=== PATIENT | female | born 1945 | race Caucasian/White ===

== ENCOUNTER 2016-12-06 14:32 | Observation (INO) | payer BC, MEDICARE ==
[2016-12-06] VITALS (13 sets, daily range): BP systolic 90–161; BP diastolic 46–92; PULSE 60–80; RESP 16–20; TEMP 96.6–97.5; O2SAT 95–99
[~2016-12-06] VITALS: Ht 157.5 cm; Wt 91.0 kg
[2016-12-06] MEDS ORDERED: COQ10 (14:59)
[2016-12-06] MEDS ORDERED: ASPI81TA11 PO (14:59)
[2016-12-06] MEDS ORDERED: SIMV10TA PO (14:59)
[2016-12-06] MEDS ORDERED: PROT40TA PO (14:59)
[2016-12-06] MEDS: NITROGLYCERIN 0.4 MG SL 25 TABS/BTL SL SCH ×3 (15:14→15:25)
[2016-12-06] MEDS ORDERED: SODIUM CHLORIDE 0.9% FLUSH 5 ML FLUSH IVF PRN ×2 (15:15→17:00)
[2016-12-06] MEDS ORDERED: MORPHINE SULFATE 4 MG/ML INJ IV PUSH ONE ×2 (15:15→16:15)
[2016-12-06] MEDS ORDERED: ASPIRIN 81 MG CHEW TAB PO ONE (15:15)
[2016-12-06 15:24] LABS: AUTOMATED NEUTROPHIL # 3.7 TH/MM3 (1.8-7.7); BASOPHIL # 0.2 TH/MM3 (0-0.2); BASOPHIL % 2.5 % (0.0-2.0); EOSINOPHIL # 0.1 TH/MM3 (0-0.4); EOSINOPHIL % 1.5 % (0.0-4.0); HEMATOCRIT 36.8 % (35.0-46.0); HEMO FLAGS DIFF FINAL; LYMPHOCYTE # 3.8 TH/MM3 (1.0-4.8); MEAN CELL VOLUME 88.4 FL (80.0-100.0); MEAN CORPUSCULAR HEMOGLOBIN 29.8 PG (27.0-34.0); MEAN CORPUSCULAR HGB CONC 33.7 % (32.0-36.0); MONO % 7.6 % (0.0-8.0); NEUT % 44.4 % (16.0-70.0); PLATELET COUNT 247 TH/MM3 (150-450); RED BLOOD COUNT 4.17 MIL/MM3 (4.00-5.30); WHITE BLOOD COUNT 8.4 TH/MM3 (4.0-11.0)
--- NOTE | 2016-12-06 15:32 | RADHPO ---
EXAM DATE/TIME: 12/06/2016 15:25 [facility] COMPARISON: No previous studies available for comparison. INDICATIONS : Chest pain MEDICAL HISTORY : None. SURGICAL HISTORY : None. ENCOUNTER: Initial ACUITY: 1 day PAIN SCORE: 6/10 LOCATION: Bilateral chest FINDINGS: The cardiac silhouette is enlarged in transverse diameter. The lungs are free of acute parenchymal op acity. No effusions are identified. Osseous structures are intact. CONCLUSION: Cardiomegaly. No acute cardiopulmonary disease. Kai Cooley MD on December 06, 2016 at 15:30 Board Certified Radiologist. This report was verified electronically.
[2016-12-06 15:34] LABS: CHLORIDE 106 MEQ/L (98-107); POTASSIUM 3.7 MEQ/L (3.5-5.1); SODIUM (NA) 143 MEQ/L (136-145)
[2016-12-06 15:38] LABS: ANION GAP 11 MEQ/L (5-15); BICARBONATE 25.8 MEQ/L (21.0-32.0); BLOOD UREA NITROGEN 21 MG/DL (7-18); MAGNESIUM 2.1 MG/DL (1.5-2.5)
[2016-12-06 15:39] LABS: APTT (PATIENT) 22.8 SEC (24.3-30.1); PROTHROMBIN TIME - PATIENT 11.2 SEC (9.8-11.6)
[2016-12-06 15:41] LABS: ALT (GPT) 17 U/L (10-53); AST (GOT) 23 U/L (15-37); GLOMERULAR FILTRATION RATE 41 ML/MIN (>89)
[2016-12-06 15:42] LABS: TOTAL BILIRUBIN ADULT 0.4 MG/DL (0.2-1.0)
[2016-12-06 15:44] LABS: ALKALINE PHOSPHATASE 135 U/L (45-117); CREATINE KINASE 68 U/L (26-192)
[2016-12-06] MEDS ORDERED: NITROGLYCERIN 0.4 MG SL 25 TABS/BTL SL PRN (17:00)
[2016-12-06] MEDS ORDERED: ACETAMINOPHEN 500 MG CPLT PO PRN (17:00)
[2016-12-06] MEDS ORDERED: ONDANSETRON HCL 4 MG/2 ML VIAL IV PRN (17:00)
[2016-12-06] MEDS ORDERED: [UNRECOGNIZED DRUG - CODE] TOPICAL (17:06)
[2016-12-06] MEDS ORDERED: ESTR42.5V VAGINAL (17:06)
--- NOTE | 2016-12-06 17:12 | PD ---
HPI Chief Complaint: Abdominal Pain Time Seen by Provider: 14:50 Travel History International Travel<30 days: No Contact w/Intl Traveler<30days: No Traveled to known affect area: No History of Present Illness HPI Patient is a 70 year old female who comes in complaining of chest pain with SOB. She says she was at lunch when she started to feel pain in the middle of her chest. She says she then developed severe pain in her left shoulder that radiated down into her chest. She says this was accompanied by SOB, nausea, diaphoresis. She says she thought her symptoms may be indigestion, but she has never had symptoms like this before. She denies fever or chills. She denies cough or cold symptoms. PFSH Past Medical History Hx Anticoagulant Therapy: Yes (81 MG ASA) High Cholesterol: Yes Diminished Hearing: No Hiatal Hernia: Yes Tetanus Vaccination: Unknown ?: Not Tubal Ligation: Yes Past Surgical History Cholecystectomy: Yes Eye Surgery: Yes (CATARACTS) Tonsillectomy: Yes Other Surgery: Yes (SKIN CA REMOVED FROM NOSE) Social History Alcohol Use: No Tobacco Use: No Substance Use: No Allergies-Medications (Allergen,Severity, Reaction): Coded Allergies: Sulfa (Verified Allergy, Unknown, Anaphylaxis, 12/06/16) Reported Meds & Prescriptions Reported Meds & Active Scripts Active Reported [Coq10] Aspirin EC (Aspirin) 81 Mg Tabdr 81 Mg PO DAILY Simvastatin 10 Mg Tab 10 Mg PO DAILY Protonix (Pantoprazole Sodium) 40 Mg Tab 40 Mg PO DAILY Review of Systems Except as stated in HPI: all other systems reviewed are Neg General / Constitutional: No: Fever, Chills Eyes: No: Blurred Vision HENT: No: Headaches Cardiovascular: Positive: Chest Pain or Discomfort, No: Syncope, Edema Respiratory: Positive: Shortness of Breath Gastrointestinal: Positive: Nausea, Abdominal Pain, No: Vomiting Genitourinary: No: Dysuria Musculoskeletal: No: Myalgias Skin: No Rash, No Change in Pigmentation Neurologic: No: Weakness, Dizziness Psychiatric: Positive: Anxiety Physical Exam Narrative GENERAL: Awake and alert, in mild distress due to pain. SKIN: Warm and dry. HEAD: Atraumatic. Normocephalic. EYES: Pupils equal and round. No scleral icterus. ENT: Mucous membranes pink and moist. NECK: Trachea midline. No JVD. CARDIOVASCULAR: Regular rate and rhythm. No murmur appreciated. RESPIRATORY: No accessory muscle use. Clear to auscultation. Breath sounds equal bilaterally. GASTROINTESTINAL: Abdomen soft, non-tender, nondistended. . MUSCULOSKELETAL: No obvious deformities. No clubbing. No cyanosis. 1+ pitting edema bilateral lower extremities. NEUROLOGICAL: Awake and alert. No obvious cranial nerve deficits. Motor grossly within normal limits. Normal speech. PSYCHIATRIC: Appropriate mood and affect; insight and judgment normal. Data Data Last Documented VS Vital Signs Date Time Temp Pulse Resp B/P Pulse Ox O2 Delivery O2 Flow Rate FiO2 12/06/16 17:04 123/48 12/06/16 17:00 75 18 96 Room Air 12/06/16 16:26 2 12/06/16 14:37 97.5 Orders Ckmb (Isoenzyme) Profile (12/06/16 15:02) Complete Blood Count With Diff (12/06/16 15:02) Comprehensive Metabolic Panel (12/06/16 15:02) Magnesium (Mg) (12/06/16 15:02) Prothrombin Time / Inr (Pt) (12/06/16 15:02) Act Partial Throm Time (Ptt) (12/06/16 15:02) Troponin I (12/06/16 15:02) Lipase (12/06/16 15:02) Chest, Single Ap (12/06/16 15:02) Ecg Monitoring (12/06/16 15:02) Bilateral Bp Monitoring (12/06/16 15:02) Iv Access Insert/Monitor (12/06/16 15:02) Oximetry (12/06/16 15:02) Oxygen Administration (12/06/16 15:02) Aspirin Chew (Aspirin Chew) (12/06/16 15:15) Morphine Inj (Morphine Inj) (12/06/16 15:15) Sodium Chloride 0.9% Flush (Ns Flush) (12/06/16 15:15) Nitroglycerin Sl (Nitrostat Sl) (12/06/16 15:15) Electrocardiogram (12/06/16 14:43) Morphine Inj (Morphine Inj) (12/06/16 16:15) Admit Order (Ed Use Only) (12/06/16 ) Place In Observation (12/06/16 16:47) Activity Bed Rest With Brp (12/06/16 16:47) Vital Signs (Adult) Q4H (12/06/16 16:47) Cardiac Rhythm .As Directed (12/06/16 16:47) ^ Notify Dr: Other .PRN (12/06/16 16:47) ^ Notify Dr. Parameters (12/06/16 16:47) Resp Oxygen Nasal Cannula (12/06/16 ) Diet Heart Healthy (12/06/16 Dinner) ^ Obtain (12/06/16 16:47) Sodium Chloride 0.9% Flush (Ns Flush) (12/06/16 17:00) Sodium Chloride 0.9% Flush (Ns Flush) (12/06/16 21:00) Acetaminophen (Tylenol) (12/06/16 17:00) Ondansetron Inj (Zofran Inj) (12/06/16 17:00) Pantoprazole (Protonix) (12/07/16 09:00) Nitroglycerin Sl (Nitrostat Sl) (12/06/16 17:00) Electrocardiogram (12/06/16 18:00) Electrocardiogram (12/06/16 21:00) Troponin I (12/06/16 18:00) Troponin I (12/06/16 21:00) Ckmb (Isoenzyme) Profile (12/06/16 18:00) Ckmb (Isoenzyme) Profile (12/06/16 21:00) Labs Laboratory Tests Test 12/06/16 15:00 White Blood Count 8.4 TH/MM3 Red Blood Count 4.17 MIL/MM3 Hemoglobin 12.4 GM/DL Hematocrit 36.8 % Mean Corpuscular Volume 88.4 FL Mean Corpuscular Hemoglobin 29.8 PG Mean Corpuscular Hemoglobin 33.7 % Concent Red Cell Distribution Width 14.0 % Platelet Count 247 TH/MM3 Mean Platelet Volume 8.9 FL Neutrophils (%) (Auto) 44.4 % Lymphocytes (%) (Auto) 44.0 % Monocytes (%) (Auto) 7.6 % Eosinophils (%) (Auto) 1.5 % Basophils (%) (Auto) 2.5 % Neutrophils # (Auto) 3.7 TH/MM3 Lymphocytes # (Auto) 3.8 TH/MM3 Monocytes # (Auto) 0.6 TH/MM3 Eosinophils # (Auto) 0.1 TH/MM3 Basophils # (Auto) 0.2 TH/MM3 CBC Comment DIFF FINAL Differential Comment Prothrombin Time 11.2 SEC Prothromb Time International 1.0 RATIO Ratio Activated Partial 22.8 SEC Thromboplast Time Sodium Level 143 MEQ/L Potassium Level 3.7 MEQ/L Chloride Level 106 MEQ/L Carbon Dioxide Level 25.8 MEQ/L Anion Gap 11 MEQ/L Blood Urea Nitrogen 21 MG/DL Creatinine 1.30 MG/DL Estimat Glomerular Filtration 41 ML/MIN Rate Random Glucose 109 MG/DL Calcium Level 8.8 MG/DL Magnesium Level 2.1 MG/DL Total Bilirubin 0.4 MG/DL Aspartate Amino Transf 23 U/L (AST/SGOT) Alanine Aminotransferase 17 U/L (ALT/SGPT) Alkaline Phosphatase 135 U/L Total Creatine Kinase 68 U/L Troponin I LESS THAN 0.02 NG/ML Total Protein 7.4 GM/DL Albumin 3.6 GM/DL Lipase 92 U/L [facility] Medical Decision Making Medical Screen Exam Complete: Yes Emergency Medical Condition: Yes Interpretation(s) ECG shows normal sinus rhythm at 69, no ST elevation or depression, normal intervals. Differential Diagnosis ACS vs NSTEMI vs STEMI vs pancreatitis vs cholecystitis Narrative Course Patient is a 70 year old female who comes in complaining of chest pain. Exam shows patient is uncomfortable secondary to pain. IV established, patient connected to the monitor technician. Labs sent show no acute abnormalities. ECG shows no signs of ischemia. Patient given nitro and morphine with improvement of her pain. Given Aspirin. CXR shows cardiomegaly, no pulmonary edema. Patient placed in chest pain observation for further management. Diagnosis Primary Impression: Chest pain Qualified Code: R07.9 - Chest pain, unspecified type Admitting Information Admitting Physician Requests: Observation Michelle Rod MD Dec 06, 2016 17:11
[2016-12-06] MEDS ORDERED: ACETAMINOPHEN/HYDROcodone 325 MG/7.5 MG TAB PO PRN (17:15)
[2016-12-06] MEDS ORDERED: SODIUM CHLOR 0.9% 1000 ML INJ 1,000 ML IV SCH (18:00)
[2016-12-06 18:23] LABS: CREATINE KINASE 54 U/L (26-192)
--- NOTE | 2016-12-06 18:33 | HHI.HP ---
[facility] Non-Staff Admission Diagnosis Chest Pain Diagnoses: (1) Chest pain Diagnosis: Principal (2) PAUL (acute kidney injury) Diagnosis: Principal Chief Complaint: chest pain Travel History International Travel<30 Days: No Contact w/Intl Traveler <30 Da: No Traveled to Known Affected Are: No History of Present Illness 70 y/o female visiting from [place] with history of hiatal hernia, one kidney, and problems with her legs including an arterial blockage on the right is admitted to chest pain center. Patient states she had just eaten a peanut butter sandwich and banana when she started to experience pain indicating over the epigastric region which "shot up" the middle of the chest into the right chest and left shoulder. She states the pain in the left shoulder was the worst. She felt like her arm was breaking and she rates the pain at that time an 8/10. She also experienced some pleuritic pain on the right side and states she had "a lot" of shortness of breath. She states she felt hot and flushed but denies true diaphoresis. She states she was significantly nauseous, but denies any vomiting or diarrhea. Denies symptoms being related to exertion. Denies any dyspnea on exertion, orthopnea, or PND. The patient has chronic swelling and pain in the legs. States she used to take triamterene as needed for this. She states she started to feel a numbness and swelling type sensation over left jaw and neck after she was administered nitroglycerin. She denies any immediate relief with nitroglycerin. States pain lasted ~1.5 hours until it subsided. She denies any fevers or chills, recent cold or cough symptoms. She states she sees a air conditioning service technician every year for the past 20 years. She states she gets an echo of her heart done once per year and the last one was performed in February 2016. Cardiomegaly was noted on chest x-ray , but the patient denies history of CHF. She last saw her air conditioning service technician in October 2016 in [place]. Last stress test was a few years ago. States she had dizziness for 3 days last week which is now resolved, but states she takes Aleve for the pain in her legs and this can cause dizziness in her if taken at night. Denies personal history of diabetes, hypertension, hyperlipidemia, NC, or CVA. States her blood pressure usually runs low. Review of Systems Constitutional: DENIES: Diaphoretic episodes, Fever, Chills Eyes: DENIES: Blurred vision Ears, nose, mouth, throat: DENIES: Throat pain, Ear Pain Respiratory: COMPLAINS OF: Shortness of breath, DENIES: Cough Cardiovascular: COMPLAINS OF: Chest pain, Lower Extremity Edema (chronic), DENIES: Dyspnea on Exertion, PND, Orthopnea Gastrointestinal: COMPLAINS OF: Abdominal pain, Nausea, DENIES: Constipation, Diarrhea, Vomiting Genitourinary: COMPLAINS OF: Urinary incontinence (chronic), DENIES: Dysuria Musculoskeletal: COMPLAINS OF: Back pain ("a little back pain today") Integumentary: DENIES: Rash Neurologic: COMPLAINS OF: Paresthesias (numbness over L jaw after Nitro), DENIES: Headache, Localized weakness Past Family Social History Past Medical History Hiatal hernia Arterial blockage right leg, nonsurgical Chronic leg pain and swelling Born with one kidney Hospitalized for what sounds like rhabdomyolysis in the past. Past Surgical History Cataract surgery Cholecystectomy Skin cancer removed from the nose, arm, and leg. Reported Medications Estrace Vaginal (Estradiol) 0.01% Cream 1 Appl VAGINAL TWICE WEEKLY Oxytrol For Women Patch (Oxybutynin Chloride) 3.9 mg/24 hr Patch 1 Patch TOPICAL Q4 DAYS [Coq10] Aspirin EC (Aspirin) 81 Mg Tabdr 81 Mg PO DAILY Simvastatin 10 Mg Tab 10 Mg PO DAILY (Takes for blockage in leg; states she does not have high cholesterol) Protonix (Pantoprazole Sodium) 40 Mg Tab 40 Mg PO DAILY Allergies: Coded Allergies: Sulfa (Verified Allergy, Unknown, Anaphylaxis, 12/06/16) Family History Mother: COPD, cirrhosis. Never drank alcohol. Father: of alcoholic cirrhosis. Maternal grandfather: at age 50 from [place]. Maternal grandmother: at age 84 from [place]. Social History Denies alcohol use. Denies history of cigarette smoking or use of tobacco products. Denies history of illicit drug use. Physical Exam Vital Signs Vital Signs Date Time Temp Pulse Resp B/P Pulse Ox O2 Delivery O2 Flow Rate FiO2 12/06/16 17:26 96 21 12/06/16 17:04 123/48 12/06/16 17:00 75 18 90/46 96 Room Air 12/06/16 16:26 76 20 110/55 98 Nasal Cannula 2 120/53 12/06/16 15:28 76 18 112/74 95 Nasal Cannula 2 12/06/16 15:17 73 18 161/71 97 Nasal Cannula 2 12/06/16 15:11 16 99 Nasal Cannula 2 12/06/16 15:00 70 16 149/61 97 Nasal Cannula 2 12/06/16 14:57 99 Nasal Cannula 2 12/06/16 14:37 97.5 80 20 128/76 99 Physical Exam GENERAL: BMI 36.7. This is a very pleasant well-nourished, well-developed patient, in no apparent distress. SKIN: No rashes, ecchymoses or lesions. Cool and dry. HEAD: Atraumatic. Normocephalic. EYES: No scleral icterus. No injection or drainage. ENT: Throat without erythema or exudate. Uvula midline. Airway patent. NECK: Trachea midline. CHEST: Tender over left and right anterior chest as well as sternum. CARDIOVASCULAR: Regular rate and rhythm without murmurs, gallops, or rubs. RESPIRATORY: Clear to auscultation. Breath sounds equal bilaterally. No wheezes , rales, or rhonchi. GASTROINTESTINAL: Normoactive bowel sounds 4 quadrants. Mildly tender over epigastric region. Abdomen soft, nondistended. No guarding. MUSCULOSKELETAL: Mild nonpitting lower extremity edema bilaterally. Calf pain bilaterally, chronic NEUROLOGICAL: Awake and alert. Motor grossly within normal limits. Normal speech. Laboratory Laboratory Tests Test 12/06/16 15:00 White Blood Count 8.4 Red Blood Count 4.17 Hemoglobin 12.4 Hematocrit 36.8 Mean Corpuscular Volume 88.4 Mean Corpuscular Hemoglobin 29.8 Mean Corpuscular Hemoglobin 33.7 Concent Red Cell Distribution Width 14.0 Platelet Count 247 Mean Platelet Volume 8.9 Neutrophils (%) (Auto) 44.4 Lymphocytes (%) (Auto) 44.0 Monocytes (%) (Auto) 7.6 Eosinophils (%) (Auto) 1.5 Basophils (%) (Auto) 2.5 Neutrophils # (Auto) 3.7 Lymphocytes # (Auto) 3.8 Monocytes # (Auto) 0.6 Eosinophils # (Auto) 0.1 Basophils # (Auto) 0.2 CBC Comment DIFF FINAL Differential Comment Prothrombin Time 11.2 Prothromb Time International 1.0 Ratio Activated Partial 22.8 Thromboplast Time Sodium Level 143 Potassium Level 3.7 Chloride Level 106 Carbon Dioxide Level 25.8 Anion Gap 11 Blood Urea Nitrogen 21 Creatinine 1.30 Estimat Glomerular Filtration 41 Rate Random Glucose 109 Calcium Level 8.8 Magnesium Level 2.1 Total Bilirubin 0.4 Aspartate Amino Transf 23 (AST/SGOT) Alanine Aminotransferase 17 (ALT/SGPT) Alkaline Phosphatase 135 Total Creatine Kinase 68 Troponin I LESS THAN 0.02 Total Protein 7.4 Albumin 3.6 Lipase 92 Result Diagram: 12/06/16 1500 12/06/16 1500 Imaging Last Impressions Chest X-Ray 12/06/16 1502 Signed Impressions: Service Date/Time: Tuesday, December 06, 2016 15:25 - CONCLUSION: Cardiomegaly. No acute cardiopulmonary disease. Kai Cooley MD Assessment and Plan Assessment and Plan 70-year-old female with: Chest pain: Epigastric pain radiating up the sternum to right chest and left shoulder along with pleuritic pain on right. Does have mild reproducible tenderness in these areas, but pain was significant upon presentation. Significant shortness of breath. EKG #1 personally interpreted with sinus rhythm, Q waves in lead 3 with shallow T wave inversion but S waves appear normal in lead I and axis is normal; no PE injury pattern. No ischemic patterns on EKG noted. Troponin less than 0.02. Lipase normal. Chest x-ray personally interpreted with cardiomegaly; no pulmonary edema. CV exam normal. Patient received 324 mg of aspirin, 6 mg morphine, and nitroglycerin 0.4 SL 2 in the ED. -Serial cardiac enzymes and EKGs -Nitro/[place]/morphine prn pain -325 mg daily aspirin -Continue statin -Telemetry -Although heart rate and oxygen saturation are normal making PE less likely patient has risk factors including age, estrogen use; also has problems in her legs with sudden onset chest pain and c/o significant SOB. I called RN later on who stated patient's pleuritic pain is resolved but she now has SOB on exertion. D-dimer ordered and elevated. Although could be elevated due to various reasons, in light of symptoms, CT pulmonary angiogram ordered to rule out PE. RN order to notify night physician if positive for PE. -Provided ACS ruled out, patient will need to undergo nuclear stress test tomorrow. She is ineligible for ETT. NPO after midnight. No caffeine after 1900 hours tonight. PAUL: BUN/Cr 21/1.3. Electrolytes normal. No prior labs for comparison. Patient only has one kidney. -Start low rate IVF -Repeat am BMP GI prophylaxis: Continue home Protonix 40 mg po daily. DVT prophylaxis: TEDs/SCDs. Problem Qualifiers (1) Chest pain: Qualified Code: R07.9 - Chest pain, unspecified type Marcelle Yu Dec 06, 2016 18:33 Nicole Baxter MD Dec 07, 2016 10:47
[2016-12-06] MEDS ORDERED: MORPHINE SULFATE 4 MG/ML INJ IV PRN (19:00)
[2016-12-06] MEDS: SODIUM CHLORIDE 0.9% FLUSH 5 ML FLUSH IVF SCH (20:30)
[2016-12-06 21:30] LABS: CREATINE KINASE 57 U/L (26-192)
[2016-12-06] MEDS ORDERED: IOHEXOL 350 MG/ML 10 ML VIAL (for RAD DIAG) IV ONE (23:06)
--- NOTE | 2016-12-06 23:25 | RADHPO ---
EXAM DATE/TIME: 12/06/2016 22:39 [facility] COMPARISON: No previous studies available for comparison. INDICATIONS : Chest pain. Evaluate for embolism. IV CONTRAST: 50 cc Omnipaque 350 (iohexol) IV RADIATION DOSE: 17.92 CTDIvol (mGy) MEDICAL HISTORY : None SURGICAL HISTORY : Tubal ligation. Cholecystectomy. ENCOUNTER: Initial ACUITY: 1 day PAIN SCALE: 7/10 LOCATION: chest TECHNIQUE: Volumetric scanning of the chest was performed using a pulmonary embolism protocol MIP images were re constructed. Using automated exposure control and adjustment of the mA and/or kV according to patien t size, radiation dose was kept as low as reasonably achievable to obtain optimal diagnostic quality images. FINDINGS: PULMONARY ARTERIES: No filling defects are seen in the pulmonary arteries through the segmental level. LUNGS: There is no consolidation or pneumothorax . No concerning pulmonary nodule is visualized. PLEURAE: There is no pleural thickening or pleural effusion. MEDIASTINUM: Enormous hiatal hernia. No lymphadenopathy. Aorta and arch vessels are unremarkable. Central airways are patent. MUSCULOSKELETAL: Within normal limits for patient age. MISCELLANEOUS: The visualized upper abdominal organs demonstrate no acute abnormality. CONCLUSION: No evidence of pulmonary embolism Giovani Restrepo MD on December 06, 2016 at 23:19 Board Certified Radiologist. This report was verified electronically.
[2016-12-07] VITALS: BP 120/66; PULSE 63; RESP 20; TEMP 96.2; O2SAT 96
[2016-12-07 03:52] VITALS: O2SAT 96
[2016-12-07 04:00] VITALS: BP 130/63; PULSE 61; RESP 20; TEMP 96; O2SAT 97
[2016-12-07 06:28] LABS: BICARBONATE 29.7 MEQ/L (21.0-32.0); POTASSIUM 4.6 MEQ/L (3.5-5.1)
[2016-12-07 08:00] VITALS: BP 130/81; PULSE 72; RESP 18; TEMP 97.8; O2SAT 96
[2016-12-07 08:19] VITALS: PULSE 69
[2016-12-07 08:25] VITALS: PULSE 62; PULSE 69
[2016-12-07] MEDS ORDERED: PANTOPRAZOLE SOD 40 MG DELAYED RELEASE TAB PO SCH (09:00)
[2016-12-07] MEDS ORDERED: ASPIRIN EC 325 MG TABEC PO SCH (09:00)
[2016-12-07] MEDS ORDERED: PRAVASTATIN SOD 20 MG TAB PO SCH (09:00)
[2016-12-07] MEDS: SODIUM CHLORIDE 0.9% FLUSH 5 ML FLUSH IVF SCH (10:31)
--- NOTE | 2016-12-07 10:43 | EKG ---
Date Performed: 12/06/2016 Time Performed: 14:43:46 PTAGE: 70 years EKG: Normal Sinus rhythm . Nondiagnostic Q-waves inferior leads, cannot exclude old inferior infart poor r wave progression, c annot exclude anterior infarct Abnormal ECG NO PREVIOUS TRACING DOCTOR: Altaf Molina Interpretating Date/Time 12/07/2016 10:41:47
--- NOTE | 2016-12-07 10:45 | EKG ---
Date Performed: 12/06/2016 Time Performed: 17:54:40 PTAGE: 70 years EKG: Sinus bradycardia with sinus arrhythmia Poor R wave progression - probable normal variant L ow QRS voltages in precordial leads Nondiagnostic Q-waves inferior leads Compared to prior tracing no significant change Borderline ECG PREVIOUS TRACING : 12/06/2016 14.43 DOCTOR: Altaf Molina Interpretating Date/Time 12/07/2016 10:42:33
--- NOTE | 2016-12-07 10:48 | EKG ---
Date Performed: 12/06/2016 Time Performed: 22:31:52 PTAGE: 70 years EKG: Sinus rhythm . Possible inferior infarct - age undetermined Low QRS voltages in precordial leads Abnormal ECG Comp ared to prior tracing no significant change PREVIOUS TRACING : 12/06/2016 17.54 DOCTOR: Altaf Molina Interpretating Date/Time 12/07/2016 10:45:08
--- NOTE | 2016-12-07 10:51 | HHI.PR ---
Subjective Remarks Patient seen and examined today. Patient denies any recurrent chest discomfort. Awaiting stress test for final delineation. Objective Vitals Vital Signs Date Time Temp Pulse Resp B/P Pulse Ox O2 Delivery O2 Flow Rate FiO2 12/07/16 08:00 97.8 72 18 130/81 96 12/07/16 04:00 96.0 61 20 130/63 97 12/07/16 03:52 96 21 12/07/16 00:00 96.2 63 20 120/66 96 12/06/16 21:30 96.6 62 20 137/70 98 12/06/16 21:30 18 98 12/06/16 21:12 60 18 127/92 96 Room Air 12/06/16 21:12 18 12/06/16 20:00 65 12/06/16 19:10 18 12/06/16 19:10 71 18 146/58 98 Room Air 12/06/16 17:26 96 21 12/06/16 17:04 123/48 12/06/16 17:00 75 18 90/46 96 Room Air 12/06/16 16:26 76 20 110/55 98 Nasal Cannula 2 120/53 12/06/16 15:28 76 18 112/74 95 Nasal Cannula 2 12/06/16 15:17 73 18 161/71 97 Nasal Cannula 2 12/06/16 15:11 16 99 Nasal Cannula 2 12/06/16 15:00 70 16 149/61 97 Nasal Cannula 2 12/06/16 14:57 99 Nasal Cannula 2 12/06/16 14:37 97.5 80 20 128/76 99 I/O 12/06/16 12/06/16 12/06/16 12/07/16 12/07/16 12/07/16 07:00 15:00 23:00 07:00 15:00 23:00 Intake Total 200 ml 0 ml Balance 200 ml 0 ml Intake Oral 200 ml 0 ml # Voids 3 2 # Bowel Movements 0 0 Result Diagram: 12/06/16 1500 12/07/16 0524 Objective Remarks GENERAL: Well-developed, well-nourished, in no acute distress. alert and orientated HEENT: Head is normocephalic without any lesions or masses noted. Facial features are symmetric. Eyes: Extraocular muscles are intact. Conjunctivae were clear. NECK: Supple without any masses. Trachea midline no deviation. No JVD, CARDIAC: Regular rhythm, regular rate. S1/S2 are heard. No murmurs gallops or rubs. LUNGS: Clear to auscultation bilaterally. No wheeze, rhonchi or rales. No use of accessory muscles on inspiration or expiration. ABDOMEN: Soft, nontender. Nondistended. Bowel sounds heard in all 4 quadrants. No organomegaly or masses. Negative rebound, negative guarding EXTREMITIES: No edema, pulses are equal bilaterally. No cyanosis or clubbing NEUROLOGY: Mood and affect appear appropriate. Cranial nerves II through XII grossly intact. Moving all extremities, speech is clear Urinary Catheter: No Vascular Central Line Catheter: No A/P Assessment and Plan Chest pain: -Serial cardiac enzymes and EKGs reviewed by myself their negative without any changes -Nitro/[place]/morphine prn pain -325 mg daily aspirin -Continue statin -Telemetry -Nuclear stress test rule out any underlying ischemia Acute kidney injury, improved: -Discontinue IV fluid GI prophylaxis: Continue home Protonix 40 mg po daily. DVT prophylaxis: TEDs/SCDs. Written by Buck Yepez PA-C, acting as scribe for Dr. Baxter on 12/07/16 at 1000. The documentation accurately reflects the work and decisions performed face-to- face by Dr. Baxter on 12/07/16 at 1000. Discharge Planning Discharge home in stable condition Activity: Ad antolin. Diet: Healthy heart diet Medications per medication reconciliation Follow-up primary medical doctor one week Medical Decision Making Impression and Plan Patient seen and evaluated in follow-up for atypical chest discomfort. Stress test negative The exam, history, and the medical decision-making described in the above note were completed with my assistance as the dictating practitioner. I attest that I had a [id number] encounter with the patient on the same day, and personally performed all of the history, exam, or medical decision making. I reviewed and agree with the plan. Buck Yepez Dec 07, 2016 10:51 Nicole Baxter MD Dec 07, 2016 13:06
--- NOTE | 2016-12-07 10:52 | HHI.DCPOC ---
Discharge Care Plan Diagnosis: (1) Chest pain (2) PAUL (acute kidney injury) Goals to Promote Your Health * To prevent worsening of your condition and complications * To maintain your health at the optimal level Directions to Meet Your Goals Take your medications as prescribed Follow your dietary instruction Follow activity as directed Keep your appointments as scheduled Take your immunizations and boosters as scheduled If your symptoms worsen call your PCP, if no PCP go to Urgent Care Center or Emergency Room Smoking is Dangerous to Your Health. Avoid second hand smoke Call the 24-hour hour crisis hotline for domestic abuse at Buck Yepez Dec 07, 2016 10:52
[2016-12-07] MEDS ORDERED: REGADENOSON INJ 0.4 MG/5 ML SYR IV ONE (11:05)
--- NOTE | 2016-12-07 12:02 | RADHPO ---
EXAM DATE/TIME: 12/07/2016 11:09 [place] COMPARISON: No previous studies available for comparison. INDICATIONS : Mid chest pain with shortness of breath for one day. Angina. DOSE: 26.2 mCi Tc99m Myoview at stress. 8.6 mCi Tc99m Myoview at rest. 0.4 mg Lexiscan STRESS SYMPTOMS: Shortness of breath. EJECTION FRACTION: 61% MEDICAL HISTORY : Hernia, hiatal. SURGICAL HISTORY : Cholecystectomy. Tubal ligation. Tonsillectomy. ENCOUNTER: Initial ACUITY: 1 day PAIN SCALE: 8/10 LOCATION: Midsternal chest TECHNIQUE: The patient underwent pharmacologic stress with infusion of prescribed dose. Continuous ECG tracing was monitored during stress. Gated SPECT imaging was performed after stress and conventional SPECT i maging was performed at rest. The examination was performed on a SPECT/CT scanner, both attenuation and non-corrected datasets were reviewed. FINDINGS: DISTRIBUTION: The maximum perfused segment at stress is equally distributed between the antral lateral and inferose ptal giraldo. Image sets were normalized to the anterolateral region.PERFUSION STUDY: The pattern of perfusion at stress is within normal limits except for some minimal apical thinning GATED STUDY: There is intact wall motion and thickening without hypokinetic or dyskinetic segments. CONCLUSION: 1. Minimal apical thinning with no scintigraphic evidence of ischemia or infarct. 2. Excellent wall motion throughout with estimated ejection fraction of 61%.. RISK CATEGORY: Low (<1% Annual Mortality Rate) Ayden Acuna MD on December 07, 2016 at 11:59 Board Certified Radiologist. This report was verified electronically.
--- NOTE | 2016-12-08 13:30 | TR ---
Date Performed: 12/07/2016 Time Performed: 11:16:14 DOCTOR: Judy Bruce DRUG LIST: CLINICAL HISTORY: ANGINA REASON FOR TEST: Angina REASON FOR ENDING: OBSERVATION: CONCLUSION: Lexiscan stress test was performed under standard four minute protocol. Radionucl[place] e was injected one minute prior to ending the test. No electrocardiographic abormalities were present to suggest ischemia. Nuclear imaging and interpretation are pending. COMMENTS:
== END 2016-12-07 13:31 | disposition home or self-care (01) ==
LOC: PHED 14:32 → PHEDA 16:48 → PH3A 21:25
PROVIDERS: ADMIT Hospitalist; ATTEND Hospitalist
DX: R07.9 Chest pain, unspecified (principal); N17.9 Acute kidney failure, unspecified; I51.7 Cardiomegaly; R06.02 Shortness of breath; R11.0 Nausea; R61 Generalized hyperhidrosis; M25.512 Pain in left shoulder; E78.00 Pure hypercholesterolemia, unspecified; R07.81 Pleurodynia; Q60.0 Renal agenesis, unilateral; G89.29 Other chronic pain; M79.606 Pain in leg, unspecified; Z79.82 Long term (current) use of aspirin; Z85.828 Personal history of other malignant neoplasm of skin
CPT/HCPCS: 71010; 71275; 78452; 80048; 80053; 82550; 83690; 83735; 84484; 85025; 85379; 85610; 85730; 93005; 93017; 96374; 99285; A9502; G0378; J2270; J2785; J7030; Q9967